=== PATIENT | male | born 1930 | race Caucasian/White ===

== ENCOUNTER 2018-01-16 17:18 | Emergency (ER) | payer MEDICARE, OTHER ==
[2018-01-16 18:23] LABS: #Basophils 0.1 thou/uL (0.0-0.2); #Eosinphils 0.1 thou/uL (0.0-0.7); #Monocytes 0.6 thou/uL (0.11-0.59); #Neutrophils 3.3 thou/uL (1.40-6.50); %Basophils 1.2 % (0.0-1.0); %Eosinophils 2.3 % (0.0-10.0); %Lymphocytes 32.6 % (21.0-51.0); %Monocytes 10.2 % (0.0-10.0); %Neutrophils 53.8 % (42.0-75.0); Hemoglobin 15.7 g/dL (14.0-18.0); Mean Corpuscular HGB CONC 31.3 g/dL (32.0-36.0); Mean Corpuscular Hemoglobin 28.4 pg (27.0-31.0); Mean Corpuscular Volume 90.7 fl (80.0-94.0); Mean Platelet Volume 7.2 fL (7.4-10.4); Platelet Count 267 thou/uL (130-400); RBC Distribution Width 12.2 % (11.5-14.5); Red Blood Cell (RBC) Count 5.52 mill/uL (4.70-6.10); White Blood Cell (WBC) Count 6.2 thou/uL (4.8-10.8)
[2018-01-16 18:40] LABS: ALT (SGPT) 23 U/L (8-55); AST (SGOT) 24 U/L (5-34); Albumin 3.9 g/dL (3.4-4.8); Alkaline Phosphatase 87 U/L (40-150); Anion Gap 14 mmol/L (10-20); BUN (Urea Nitrogen) 16 mg/dL (8.4-25.7); Bilirubin, Total 1.3 mg/dL (0.2-1.2); CK (CPK) 69 U/L (30-200); CKMB 1.5 ng/mL (0-6.6); Calc. Creatinine Clearance 0 mL/min (70-130); Calcium 8.7 mg/dL (7.8-10.44); Carbon Dioxide 29 mmol/L (23-31); Chloride 102 mmol/L (98-107); Estimated GFR-MDRD 81; Globulin 2.5 g/dL (2.4-3.5); Glucose 102 mg/dL (83-110); Lipase 29 U/L (8-78); Potassium 4.5 mmol/L (3.5-5.1); Protein, Total 6.4 g/dL (5.8-8.1); Sodium 140 mmol/L (136-145); Troponin I 0.034 ng/mL (< 0.028)
[2018-01-16] MEDS ORDERED: Sodium Chloride 0.9% 1,000 ML ONE (19:10)
--- NOTE | 2018-01-16 19:58 | RAD ---
PORTABLE CHEST: 01/16/2018 PROVIDED CLINICAL HISTORY: Altered mental status. COMPARISON: None. FINDINGS: The cardiac silhouette appears enlarged. Atherosclerosis involves the aortic arch. No focal consoli dation, pleural fluid, or pneumothorax apparent. IMPRESSION: No evidence for an acute cardiopulmonary process. POS: [facility]
[2018-01-16] MEDS ORDERED: cefTRIAXone\\ROCEPHIN 1 GM VIAL ONE (20:18)
[2018-01-16] MEDS ORDERED: Sodium Chloride 0.9% 100 ML ONE (20:19)
== END 2018-01-16 20:40 | disposition home or self-care (01) ==
LOC: NAV ERS 17:18
DX: J20.9 Acute bronchitis, unspecified (principal); R41.82 Altered mental status, unspecified; E86.0 Dehydration
CPT/HCPCS: 71045; 80053; 82550; 82553; 83690; 84443; 84484; 85025; 85652; 87040; 87086; 93005; 96361; 96374; J0696; J7050

== ENCOUNTER 2019-01-14 11:41 | Outpatient (CLI) | payer MEDICARE | END 2019-01-14 11:42 | disposition home or self-care (01) | LOC: NAV ULT 11:41 | PROVIDERS: ATTEND Family Medicine | DX: I48.91 Unspecified atrial fibrillation (principal); I08.3 Combined rheumatic disorders of mitral, aortic and tricuspid valves | CPT/HCPCS: 93306 ==